=== PATIENT | female | born 1965 | race Caucasian/White ===

== ENCOUNTER → 2019-02-25 | Outpatient (REF) | payer OTHER ==
[2019-03-01 14:25] LABS: HPV HYBRID CAPTURE II Positive (Negative)
== END ==
LOC: M LAB LCGH 14:43
PROVIDERS: ATTEND Nurse Practitioner Adult Health
DX: Z12.4 Encounter for screening for malignant neoplasm of cervix (principal)

== ENCOUNTER → 2019-03-19 | Outpatient (REF) | payer OTHER | LOC: M LAB LCGH 14:58 | PROVIDERS: ATTEND Obstetrics & Gynecology | DX: N72 Inflammatory disease of cervix uteri (principal) ==